=== PATIENT | female | born 1930 | race African-American/Black ===

== ENCOUNTER 2017-03-15 08:36 | Emergency (ER) | payer MEDICARE, OTHER ==
[~2017-03-15] VITALS: Ht 160 cm; Wt 57.0 kg
[2017-03-15 08:40] VITALS: Ht 160 cm; Wt 57.0 kg
--- NOTE | 2017-03-15 09:51 | ERD ---
ER Documentation Chief Complaint Date/Time DATE: 03/15/17 TIME: 09:50 Chief Complaint bib daughter for anxiety , dementia , wants to talk to high school social studies teacher HPI 86-year-old female presenting to the ER with her daughter. She is requesting to speak with the high school social studies teacher. She has no medical complaints today. She was noted to have high blood pressure but she states she just took her blood pressure medications this morning. She denies any headache, blurry vision, nausea, vomiting, focal weakness or numbness, or chest pain or shortness of breath. She states that her daughter is taking all her money and her belongings. This is leaving her with nothing. She does not know what to do and where to live as she is somewhat dependent on her daughter. ROS All systems reviewed and are negative except as per history of present illness. PMhx/Soc History of Surgery: Yes (Tonsils, Lypoma) Anesthesia Reaction: No Hx Neurological Disorder: No Hx Respiratory Disorders: Yes (COPD) Hx Cardiac Disorders: No Hx Psychiatric Problems: No Hx Miscellaneous Medical Probl: Yes (Osteoporosis) Hx Alcohol Use: No Hx Substance Use: No Hx Tobacco Use: Yes Smoking Status: Former smoker FmHx Family History: No diabetes Physical Exam Vitals Vital Signs Date Time Temp Pulse Resp B/P Pulse Ox O2 Delivery O2 Flow Rate FiO2 03/15/17 08:40 98.1 96 18 200/96 98 Physical Exam Const: No apparent distress, nontoxic Head: Atraumatic Eyes: Normal Conjunctiva, PERRLA, EOMI ENT: Normal External Ears, Nose and Mouth. Neck: Full range of motion..~ No meningismus. Resp: Clear to auscultation bilaterally Cardio: Regular rate and rhythm, no murmurs Abd: Soft, non tender, non distended. Normal bowel sounds Skin: No petechiae or rashes Back: No midline or flank tenderness Ext: No cyanosis, or edema Neur: Awake and alert and oriented 3, ambulating with a steady gait, no facial asymmetry, strength grossly intact Psych: Normal Mood and Affect Procedures/MDM Patient is presenting for mostly social issues. She does not have any acute medical complaints or any acute findings on exam. patient's blood pressure was elevated (>120/80) but appears stable without evidence of hypertension emergency or urgency. The patient was counseled about the risks of hypertension and urged to pursue outpatient monitoring and therapy within a week with their primary care physician. smokehouse worker came to speak with the patient and provided her some resources to find a new housing situation. Patient is content with her discussion and understands her instructions. Patient would like to leave without her daughter knowing so she can get to the housing clinic as recommended. Departure Diagnosis: Primary Impression: Living accommodation issues Additional Impressions: Family conflict Asymptomatic hypertension Condition: Stable Patient Instructions: High Blood Pressure (Hypertension) Referrals: [facility] YOU HAVE RECEIVED A MEDICAL SCREENING EXAM AND THE RESULTS INDICATE THAT YOU DO NOT HAVE A CONDITION THAT REQUIRES URGENT TREATMENT IN THE EMERGENCY DEPARTMENT. FURTHER EVALUATION AND TREATMENT OF YOUR CONDITION CAN WAIT UNTIL YOU ARE SEEN IN YOUR DOCTORS OFFICE WITHIN THE NEXT 1-2 DAYS. IT IS YOUR RESPONSIBILITY TO MAKE AN APPOINTMENT FOR FOLOW-UP CARE. IF YOU HAVE A PRIMARY DOCTOR --you should call your primary doctor and schedule an appointment IF YOU DO NOT HAVE A PRIMARY DOCTOR YOU CAN CALL OUR PHYSICIAN REFERRAL HOTLINE AT IF YOU CAN NOT AFFORD TO SEE A PHYSICIAN YOU CAN CHOSE FROM THE FOLLOWING [facility] [address] [facility]. [facility] [address] [facility] [facility] [address] [facility] [facility] [address] [facility] [facility]. [facility] [address]. [facility]. [address] Additional Instructions: Follow the instructions given to you by the high school social studies teacher. See your primary care doctor within 1 week regarding your high blood pressure. CASEY BHAKTA MD Mar 15, 2017 09:50
[2017-03-15 10:28] VITALS: BP 165/69; PULSE 74; RESP 20; TEMP 98
== END 2017-03-15 11:30 | disposition home or self-care (01) ==
LOC: E/R 08:36
DX: Z59.9 Problem related to housing and economic circumstances, unspecified (principal); I10 Essential (primary) hypertension; J44.9 Chronic obstructive pulmonary disease, unspecified; Z87.891 Personal history of nicotine dependence; Z63.8 Other specified problems related to primary support group
CPT/HCPCS: 99282